=== PATIENT | female | born 1985 | race Caucasian/White ===

== ENCOUNTER 2019-08-28 11:05 | Outpatient (CLI) | payer OTHER, SELFPAY ==
[2019-08-28 12:30] LABS: HCG, Serum Qual Positive (Negative)
== END 2019-08-28 11:06 | disposition home or self-care (01) ==
LOC: LAB 11:17
PROVIDERS: PCP Nurse Practitioner Family; Visit Provider Nurse Practitioner Family
DX: Z32.01 Encounter for pregnancy test, result positive (principal)
CPT/HCPCS: 36415; 84702; 84703